=== PATIENT | male | born 1965 | race Caucasian/White ===

== ENCOUNTER 2018-09-10 06:03 | Inpatient (IN) | payer MEDICAID ==
[~2018-09-10] VITALS: Ht 182.9 cm; Wt 98.1 kg
[~2018-09-10 06:03] MED LIST: ASA5EC PO; ATOR20TA65 PO; CLOP75TA33 PO; GLIP10TA10 PO; METFORMIN PO; METO-396 PO
[2018-09-10] MEDS ORDERED: ONDANSETRON HCL 4MG/2ML INJ IV STA (07:23)
[2018-09-10] MEDS ORDERED: MORPHINE SULFATE 4 MG/ML CPJ (NOT FOR IM USE) IV STA (07:23)
[2018-09-10] MEDS ORDERED: ASPIRIN 81MG TABLET PO ONE (07:30)
[2018-09-10 07:36] LABS: INR 0.9; PROTHROMBIN TIME 9.8 sec (9.6-11.0)
[2018-09-10 07:37] LABS: CHLORIDE 105 mEq/L (98-107)
[2018-09-10 07:43] LABS: BASOPHILS % 0.5 % (0.0-2.0); EOSINOPHILS % 3.7 % (0.0-5.0); HEMATOCRIT. 46.9 % (42.0-52.0); HEMOGLOBIN. 16.7 g/dL (14.0-18.0); LYMPHOCYTES % 36.4 % (20.0-50.0); MEAN CORPUSCULAR HEMOGLOBIN 33.4 pg (28.0-32.0); MEAN CORPUSCULAR VOLUME 94.2 fL (80.0-94.0); MEAN PLATELET VOLUME 9.6 fl (7.4-10.4); MONOCYTES % 7.3 % (2.0-8.0); NEUTROPHILS % 52.1 % (40.0-76.0); PLATELET 154 x1000/uL (130-400); RED BLOOD CELL COUNT 4.98 mill/uL (4.7-6.1); RED CELL DISTRIBUTION WIDTH 12.3 % (11.6-14.6)
[2018-09-10 07:45] LABS: CLARITY URINE CLEAR (CLEAR); COLOR URINE YELLOW (YELLOW); KETONES URINE NEGATIVE (NEGATIVE); LEUKOCYTE ESTERASE URINE NEGATIVE (NEGATIVE); NITRITE URINE NEGATIVE (NEGATIVE); OCCULT BLOOD URINE NEGATIVE (NEGATIVE); PH URINE 6.5 (4.5-8.0); PROTEIN URINE NEGATIVE (NEGATIVE); SPECIFIC GRAVITY URINE 1.031 (1.005-1.030)
[2018-09-10] MEDS ORDERED: DEXTROSE 50% WATER 50ML SYRINGE IV PRN (10:45)
[2018-09-10] MEDS ORDERED: ACETAMINOPHEN 325MG TABLET PO PRN (10:45)
[2018-09-10] MEDS ORDERED: ONDANSETRON HCL 4MG/2ML INJ IV PRN (10:45)
[2018-09-10 11:43] VITALS: BP 116/73
[2018-09-10] MEDS: BLOOD SUGAR DIAGNOSTIC STRIP TEST SCH ×3 (11:45→21:31)
[2018-09-10 12:00] VITALS: BP 155/92
[2018-09-10] MEDS ORDERED: REGADENOSON 0.4 MG/5 ML IV ONE (12:30)
[2018-09-10] MEDS: CLOPIDOGREL 75MG TABLET PO SCH (13:30)
[2018-09-10] MEDS: METOPROLOL TARTRATE 25MG TABLET PO SCH ×2 (13:32→21:00)
[2018-09-10] MEDS: ENOXAPARIN 30MG/0.3ML SYR SUBCUT SCH ×2 (13:33→21:32)
[2018-09-10] MEDS: INSULIN LISPRO 100 UNITS/ML SUBCUT SCH ×3 (13:34→21:33)
[2018-09-10] MEDS: NITROGLYCERIN OINT 1GM/INCH UDPKT TD SCH ×2 (14:22→21:57)
[2018-09-10 16:00] VITALS: BP 94/53
[2018-09-10] MEDS: NICOTINE 7MG PATCH TD SCH (17:34)
[2018-09-10 20:00] VITALS: BP 99/56
[2018-09-10] MEDS ORDERED: ATORVASTATIN CALCIUM 20MG TABLET PO SCH (21:00)
[2018-09-10] MEDS ORDERED: ATORVASTATIN CALCIUM 10MG TABLET PO SCH (21:00)
[2018-09-10] MEDS: INSULIN GLARGINE UD 100 UNITS/ML SYR SUBCUT SCH (21:34)
[2018-09-11] VITALS: BP 97/53
[2018-09-11 04:00] VITALS: BP 102/65
[2018-09-11] MEDS: BLOOD SUGAR DIAGNOSTIC STRIP TEST SCH ×2 (06:20→12:24)
[2018-09-11] MEDS: NITROGLYCERIN OINT 1GM/INCH UDPKT TD SCH ×2 (06:20→14:00)
[2018-09-11] MEDS: INSULIN LISPRO 100 UNITS/ML SUBCUT SCH ×2 (06:25→12:48)
[2018-09-11 07:02] LABS: BASOPHILS % 0.5 % (0.0-2.0); EOSINOPHILS % 2.2 % (0.0-5.0); HEMOGLOBIN. 15.1 g/dL (14.0-18.0); LYMPHOCYTES % 28.8 % (20.0-50.0); MEAN CORPUSCULAR HEMOGLOBIN 33.9 pg (28.0-32.0); MEAN CORPUSCULAR VOLUME 94.3 fL (80.0-94.0); MEAN PLATELET VOLUME 9.4 fl (7.4-10.4); MONOCYTES % 6.7 % (2.0-8.0); NEUTROPHILS % 61.8 % (40.0-76.0); PLATELET 133 x1000/uL (130-400); RED BLOOD CELL COUNT 4.46 mill/uL (4.7-6.1); RED CELL DISTRIBUTION WIDTH 12.3 % (11.6-14.6)
[2018-09-11 07:38] LABS: CHLORIDE 107 mEq/L (98-107)
[2018-09-11 08:00] VITALS: BP 139/44
[2018-09-11] MEDS ORDERED: REGADENOSON 0.4 MG/5 ML IV ONE (08:35)
[2018-09-11] MEDS ORDERED: ASPIRIN 81MG TABLET PO SCH (09:00)
[2018-09-11] MEDS: METOPROLOL TARTRATE 25MG TABLET PO SCH (09:51)
[2018-09-11] MEDS: CLOPIDOGREL 75MG TABLET PO SCH (09:52)
[2018-09-11] MEDS: NICOTINE 7MG PATCH TD SCH (09:52)
[2018-09-11] MEDS: INSULIN GLARGINE UD 100 UNITS/ML SYR SUBCUT SCH (09:53)
[2018-09-11] MEDS: ENOXAPARIN 30MG/0.3ML SYR SUBCUT SCH (09:54)
[2018-09-11 12:00] VITALS: BP 108/73
[2018-09-11 12:51] VITALS: BP 108/73
== END 2018-09-11 15:15 | disposition home or self-care (01) | DRG 203 ==
LOC: ER 06:03 → 5WST 09:10 → EDBEDREQ 09:13 → ENRESERV 10:04 → 5WST 11:41
PROVIDERS: ADMIT Internal Medicine; ATTEND Internal Medicine
DX: M94.0 Chondrocostal junction syndrome [Tietze] (principal); I11.9 Hypertensive heart disease without heart failure; E11.9 Type 2 diabetes mellitus without complications; E78.1 Pure hyperglyceridemia; I25.2 Old myocardial infarction; I25.119 Atherosclerotic heart disease of native coronary artery with unspecified angina pectoris; E78.5 Hyperlipidemia, unspecified; F17.210 Nicotine dependence, cigarettes, uncomplicated; I45.10 Unspecified right bundle-branch block; Z79.02 Long term (current) use of antithrombotics/antiplatelets; Z79.82 Long term (current) use of aspirin; Z79.899 Other long term (current) drug therapy; Z82.49 Family history of ischemic heart disease and other diseases of the circulatory system; Z95.5 Presence of coronary angioplasty implant and graft; Z71.6 Tobacco abuse counseling
CPT/HCPCS: 36415; 71045; 78452; 80048; 80061; 82962; 83036; 83880; 84443; 84484; 93005; 93017; 93306; 96374; 96375; 99285; A9500; J1650; J1815; J2270; J2405; J2785

== ENCOUNTER 2020-10-24 00:44 | Inpatient (IN) | payer SELFPAY ==
[~2020-10-24] VITALS: Ht 182.9 cm; Wt 104.9 kg
[2020-10-24] VITALS (8 sets, daily range): BP systolic 129–144; BP diastolic 76–92
[~2020-10-24 00:44] MED LIST changes: -ASA5EC PO; +ASPI-867 PO
[2020-10-24] MEDS ORDERED: ASPIRIN 81MG TABLET PO ONE (01:15)
[2020-10-24] MEDS ORDERED: NITROGLYCERIN 0.4MG TABLET SL SL PRN (01:15)
[2020-10-24 01:35] LABS: BASOPHILS % 0.5 % (0.0-2.0); HEMATOCRIT. 45.5 % (42.0-52.0); HEMOGLOBIN. 16.2 g/dL (14.0-18.0); LYMPHOCYTES % 38.7 % (20.0-50.0); MEAN CORPUSCULAR HEMOGLOBIN 33.9 pg (28.0-32.0); MEAN CORPUSCULAR VOLUME 95.4 fL (80.0-94.0); MEAN PLATELET VOLUME 9.4 fl (7.4-10.4); MONOCYTES % 7.8 % (2.0-8.0); PLATELET 144 x1000/uL (130-400); RED BLOOD CELL COUNT 4.77 mill/uL (4.7-6.1); RED CELL DISTRIBUTION WIDTH 12.2 % (11.6-14.6)
[2020-10-24 01:38] LABS: CHLORIDE 105 mEq/L (98-107)
[2020-10-24] MEDS ORDERED: ENOXAPARIN 100MG/ML SYR SUBCUT NR (02:15)
[2020-10-24 02:38] LABS: PARTIAL THROMBOPLASTIN TIME 27.5 sec (23.4-31.0); PROTHROMBIN TIME 10.3 sec (9.6-11.0)
[2020-10-24] MEDS ORDERED: MORPHINE SULFATE 2 MG/ML CPJ (NOT FOR IM USE) IV PRN (09:00)
[2020-10-24] MEDS ORDERED: MAGNESIUM/ALUMINUM HYDROXIDE/SIMETHICONE 30ML UDC PO PRN (09:00)
[2020-10-24] MEDS ORDERED: ONDANSETRON HCL 4MG/2ML INJ IV PRN (09:00)
[2020-10-24] MEDS ORDERED: IPRATROPIUM/ALBUTEROL 0.5-3(2.5)MG/3ML NEB HHN PRN (09:00)
[2020-10-24] MEDS ORDERED: HYDRALAZINE 20MG/ML VIAL IV PRN (09:00)
[2020-10-24] MEDS ORDERED: DIPHENHYDRAMINE 50MG/ML VIAL IV PRN (09:00)
[2020-10-24] MEDS ORDERED: HYDROCODONE/ACETAMINOPHEN 5/325MG TABLET PO PRN (09:00)
[2020-10-24] MEDS ORDERED: ENOXAPARIN 40MG/0.4ML SYR SUBCUT SCH (09:00)
[2020-10-24] MEDS ORDERED: ACETAMINOPHEN 325MG TABLET PO PRN (09:00)
[2020-10-24] MEDS ORDERED: CLONIDINE 0.1MG TABLET PO PRN (09:00)
[2020-10-24] MEDS ORDERED: LORAZEPAM 2MG/ML CPJ IV PRN (09:00)
[2020-10-24] MEDS ORDERED: DOCUSATE SODIUM 100MG CAPSULE PO PRN (09:00)
[2020-10-24] MEDS ORDERED: GUAIFENESIN 200MG/10ML SUGAR FREE UDC PO PRN (09:00)
[2020-10-24] MEDS ORDERED: ENOXAPARIN 100MG/ML SYR SUBCUT SCH (14:00)
[2020-10-24] MEDS: ASPIRIN 81MG TABLET PO SCH (14:22)
[2020-10-24] MEDS: AMLODIPINE 2.5MG TABLET PO SCH (14:22)
[2020-10-24] MEDS: SODIUM CHLORIDE 0.9% INJ 3ML FLUSH IVF SCH ×2 (14:22→21:10)
[2020-10-24 16:00] LABS: CREATINE KINASE MB FRACTION 19.6 ng/mL (0.5-3.6)
[2020-10-24] MEDS: ENOXAPARIN 100MG/ML SYR SUBCUT SCH (18:40)
[2020-10-24] MEDS ORDERED: ENOXAPARIN 30MG/0.3ML SYR SUBCUT SCH (21:00)
[2020-10-24] MEDS ORDERED: METOPROLOL TARTRATE 25MG TABLET PO SCH (21:00)
[2020-10-24] MEDS: NITROGLYCERIN OINT 1GM/INCH UDPKT TD SCH (21:10)
[2020-10-25] VITALS (11 sets, daily range): BP systolic 106–149; BP diastolic 67–86
[2020-10-25 00:19] LABS: CREATINE KINASE MB FRACTION 9.4 ng/mL (0.5-3.6)
[2020-10-25] MEDS: NITROGLYCERIN OINT 1GM/INCH UDPKT TD SCH ×3 (06:20→21:25)
[2020-10-25] MEDS: ENOXAPARIN 100MG/ML SYR SUBCUT SCH ×2 (06:21→17:41)
[2020-10-25] MEDS: SODIUM CHLORIDE 0.9% INJ 3ML FLUSH IVF SCH ×3 (06:21→21:17)
[2020-10-25 06:31] LABS: BASOPHILS % 0.7 % (0.0-2.0); EOSINOPHILS % 2.4 % (0.0-5.0); HEMATOCRIT. 44.4 % (42.0-52.0); HEMOGLOBIN. 15.7 g/dL (14.0-18.0); LYMPHOCYTES % 34.6 % (20.0-50.0); MEAN CORPUSCULAR HEMOGLOBIN 33.7 pg (28.0-32.0); MEAN CORPUSCULAR VOLUME 95.3 fL (80.0-94.0); MEAN PLATELET VOLUME 9.7 fl (7.4-10.4); MONOCYTES % 8.2 % (2.0-8.0); NEUTROPHILS % 54.1 % (40.0-76.0); PLATELET 143 x1000/uL (130-400); RED BLOOD CELL COUNT 4.66 mill/uL (4.7-6.1); RED CELL DISTRIBUTION WIDTH 12.2 % (11.6-14.6)
[2020-10-25 06:44] LABS: CHLORIDE 106 mEq/L (98-107)
[2020-10-25] MEDS: ASPIRIN 81MG TABLET PO SCH (10:11)
[2020-10-25] MEDS: AMLODIPINE 2.5MG TABLET PO SCH (10:12)
[2020-10-25] MEDS ORDERED: DEXTROSE 50% WATER 50ML SYRINGE IV PRN (12:00)
[2020-10-25] MEDS: INSULIN LISPRO 100 UNITS/ML SUBCUT SCH ×3 (12:20→21:27)
[2020-10-25] MEDS: BLOOD SUGAR DIAGNOSTIC STRIP TEST SCH ×2 (17:30→21:21)
[2020-10-25 20:49] LABS: CLARITY URINE CLEAR (CLEAR); COLOR URINE YELLOW (YELLOW); KETONES URINE NEGATIVE (NEGATIVE); LEUKOCYTE ESTERASE URINE NEGATIVE (NEGATIVE); NITRITE URINE NEGATIVE (NEGATIVE); OCCULT BLOOD URINE NEGATIVE (NEGATIVE); PH URINE 6.5 (4.5-8.0); PROTEIN URINE TRACE (NEGATIVE); SPECIFIC GRAVITY URINE 1.036 (1.005-1.030)
[2020-10-25 21:11] LABS: *AMPHETAMINES SCREEN URINE NEGATIVE (NEGATIVE); *BARBITURATES SCREEN URINE NEGATIVE (NEGATIVE); *BENZODIAZEPINES SCREEN URINE NEGATIVE (NEGATIVE)
[2020-10-25 21:12] LABS: *COCAINE SCREEN URINE NEGATIVE (NEGATIVE); CANNABINOID URINE SCREEN NEGATIVE (NEGATIVE); METHADONE URINE SCREEN NEGATIVE (NEGATIVE); OPIATES URINE SCREEN NEGATIVE (NEGATIVE); PHENCYCLIDINE URINE SCREEN NEGATIVE (NEGATIVE)
[2020-10-25] MEDS: METOPROLOL TARTRATE 50MG TABLET PO SCH (21:26)
[2020-10-26] VITALS (17 sets, daily range): BP systolic 89–133; BP diastolic 49–91
[2020-10-26] MEDS: SODIUM CHLORIDE 0.9% INJ 3ML FLUSH IVF SCH ×3 (05:19→21:12)
[2020-10-26] MEDS: BLOOD SUGAR DIAGNOSTIC STRIP TEST SCH ×4 (06:21→21:06)
[2020-10-26] MEDS: NITROGLYCERIN OINT 1GM/INCH UDPKT TD SCH ×3 (06:21→23:08)
[2020-10-26] MEDS ORDERED: SODIUM CHLORIDE 0.9% 500 ML IV ONE (07:00)
[2020-10-26 07:05] LABS: CHLORIDE 107 mEq/L (98-107)
[2020-10-26] MEDS: INSULIN LISPRO 100 UNITS/ML SUBCUT SCH ×4 (07:20→21:17)
[2020-10-26 07:43] LABS: BASOPHILS % 0.5 % (0.0-2.0); EOSINOPHILS % 2.4 % (0.0-5.0); HEMATOCRIT. 43.2 % (42.0-52.0); HEMOGLOBIN. 15.5 g/dL (14.0-18.0); LYMPHOCYTES % 33.7 % (20.0-50.0); MEAN CORPUSCULAR HEMOGLOBIN 34.3 pg (28.0-32.0); MEAN CORPUSCULAR VOLUME 95.8 fL (80.0-94.0); MONOCYTES % 8.8 % (2.0-8.0); NEUTROPHILS % 54.6 % (40.0-76.0); PLATELET 137 x1000/uL (130-400); RED BLOOD CELL COUNT 4.51 mill/uL (4.7-6.1); RED CELL DISTRIBUTION WIDTH 12.3 % (11.6-14.6)
[2020-10-26] MEDS ORDERED: NITROGLYCERIN 50MCG/ML 10ML VIAL (CATH LAB) IV ONE (07:49)
[2020-10-26] MEDS ORDERED: NICARDIPINE 100MCG/ML 10ML VIAL (CATH LAB) IV ONE (07:49)
[2020-10-26] MEDS ORDERED: HEPARIN SODIUM 1,000 UNIT/1ML VIAL IV ONE (07:49)
[2020-10-26] MEDS: ASPIRIN 81MG TABLET PO SCH (08:53)
[2020-10-26] MEDS: AMLODIPINE 2.5MG TABLET PO SCH (09:00)
[2020-10-26] MEDS: METOPROLOL TARTRATE 50MG TABLET PO SCH ×2 (09:00→21:13)
[2020-10-26] MEDS ORDERED: SODIUM CHLORIDE 0.45% 500 ML IV ONE (09:45)
[2020-10-26] MEDS ORDERED: FENTANYL CITRATE/PF 50MCG/ML 2ML VIAL ONE (10:10)
[2020-10-26] MEDS ORDERED: ASPIRIN/SOD BICARB/CITRIC ACID 324MG TAB EFF ONE (10:10)
[2020-10-26] MEDS ORDERED: MIDAZOLAM HCL 2 MG/2 ML VIAL ONE (10:10)
[2020-10-26] MEDS ORDERED: LIDOCAINE HCL 1% 20ML VIAL (Pyxis) INJ ONE (10:11)
[2020-10-26] MEDS ORDERED: IODIXANOL 320MG/ML 100 ML BOTTLE IV ONE (10:11)
[2020-10-26] MEDS ORDERED: IODIXANOL 320MG/ML 200ML BOTTLE ONE (10:17)
[2020-10-26] MEDS ORDERED: ALLOPURINOL 300 MG TABLET PO NR (13:15)
[2020-10-26] MEDS ORDERED: ASCORBIC ACID 500 MG TABLET PO NR (13:16)
[2020-10-26 17:06] LABS: PARTIAL THROMBOPLASTIN TIME 29.1 sec (23.4-31.0); PROTHROMBIN TIME 10.3 sec (9.6-11.0)
[2020-10-26] MEDS ORDERED: CHLORHEXIDINE GLUCONATE 4% EXTERNAL USE TOP SCH ×2 (21:00)
[2020-10-27] VITALS (77 sets, daily range): BP systolic 93–161; BP diastolic 46–87
[2020-10-27] MEDS ORDERED: BLOOD SUGAR DIAGNOSTIC STRIP TEST NR (04:00)
[2020-10-27] MEDS ORDERED: CEFAZOLIN 1000MG PREMIX 50 ML IV SCH (05:00)
[2020-10-27 05:31] LABS: BASOPHILS % 0.4 % (0.0-2.0); HEMATOCRIT. 47.4 % (42.0-52.0); HEMOGLOBIN. 16.1 g/dL (14.0-18.0); LYMPHOCYTES % 39.8 % (20.0-50.0); MEAN CORPUSCULAR HEMOGLOBIN 33.2 pg (28.0-32.0); MEAN CORPUSCULAR VOLUME 97.8 fL (80.0-94.0); MEAN PLATELET VOLUME 9.1 fl (7.4-10.4); MONOCYTES % 8.4 % (2.0-8.0); NEUTROPHILS % 48.4 % (40.0-76.0); PLATELET 148 x1000/uL (130-400); RED BLOOD CELL COUNT 4.85 mill/uL (4.7-6.1); RED CELL DISTRIBUTION WIDTH 12.4 % (11.6-14.6)
[2020-10-27] MEDS ORDERED: ACETAMINOPHEN 500MG TABLET ONE (05:33)
[2020-10-27] MEDS ORDERED: THROMBIN (BOVINE) 5000 UNITS/VIAL TOP ONE (05:34)
[2020-10-27] MEDS ORDERED: SKIN ADHESIVE 0.7 GM EA TOP ONE (05:34)
[2020-10-27] MEDS ORDERED: POLYMYXIN B SULFATE 500000 UNITS/VIAL ONE (05:35)
[2020-10-27 05:38] LABS: CHLORIDE 107 mEq/L (98-107)
[2020-10-27] MEDS ORDERED: HEPARIN 1000 UNITS/ML 10ML ONE ×3 (05:39→08:33)
[2020-10-27] MEDS ORDERED: PAPAVERINE HCL 180MG in SODIUM CHLORIDE 0.9% 24ML IV PRN (06:00)
[2020-10-27] MEDS ORDERED: INSULIN REGULAR (DRIP) 100 UNITS in SODIUM CHLORIDE 0.9% 99 ML IV PRN (06:00)
[2020-10-27] MEDS ORDERED: NICARDIPINE 40 MG/200 ML PREMIX 200 ML IV PRN (06:00)
[2020-10-27] MEDS ORDERED: DEL NIDO ELECTROLYTE-S(PH 7.4) 1,000 ML IV PRN ×2 (06:00)
[2020-10-27] MEDS: NITROGLYCERIN OINT 1GM/INCH UDPKT TD SCH (06:00)
[2020-10-27] MEDS ORDERED: CEFAZOLIN 2,000 MG in DEXT 5% WATER 100 ML IV PRN (06:00)
[2020-10-27] MEDS ORDERED: EPINEPHRINE 5 MG in DEXT 5% WATER 245 ML IV PRN (06:00)
[2020-10-27] MEDS ORDERED: DOPAMINE 400 MG PREMIX 250 ML IV PRN (06:00)
[2020-10-27] MEDS ORDERED: DOBUTAMINE 250 MG PREMIX 250 ML IV PRN (06:00)
[2020-10-27] MEDS ORDERED: NOREPINEPHRINE 8 MG in DEXT 5% WATER 242 ML IV PRN (06:00)
[2020-10-27] MEDS: BLOOD SUGAR DIAGNOSTIC STRIP TEST SCH ×16 (06:07→23:00)
[2020-10-27] MEDS: SODIUM CHLORIDE 0.9% INJ 3ML FLUSH IVF SCH (06:23)
[2020-10-27] MEDS: INSULIN LISPRO 100 UNITS/ML SUBCUT SCH (06:38)
[2020-10-27] MEDS ORDERED: HYDROMORPHONE HCL/PF 2MG/ML (OR) ONE (06:46)
[2020-10-27] MEDS ORDERED: ROCURONIUM BROMIDE 10MG/ML VIAL 5ML IV ONE (06:57)
[2020-10-27] MEDS ORDERED: DEXAMETHASONE 4MG/ML 1ML VIAL ONE (06:57)
[2020-10-27] MEDS ORDERED: POTASSIUM CHLORIDE 40MEQ/20ML INJ IV ONE (07:35)
[2020-10-27] MEDS ORDERED: MAGNESIUM SULFATE 5GM/10ML VIAL IV ONE (07:35)
[2020-10-27] MEDS ORDERED: HEPARIN 10,000 UNITS/ML VIAL ONE (07:35)
[2020-10-27] MEDS ORDERED: ALBUMIN HUMAN 25GM/100ML (25%) IV ONE (07:35)
[2020-10-27] MEDS ORDERED: FUROSEMIDE 100MG/10ML VIAL ONE (07:40)
[2020-10-27] MEDS ORDERED: CALCIUM CHLORIDE 1GM/10ML SYR IV ONE ×2 (07:48→09:14)
[2020-10-27] MEDS ORDERED: SODIUM BICARBONATE 8.4% 1 MEQ/ML 50ML SYR IV ONE (08:55)
[2020-10-27] MEDS ORDERED: CHLORHEXIDINE GLUCONATE 4% EXTERNAL USE TOP SCH ×2 (09:00)
[2020-10-27] MEDS ORDERED: KCL 10MEQ/50ML PREMIX 200 ML IV PRN (09:00)
[2020-10-27] MEDS ORDERED: DEXTROSE 50% WATER 50ML SYRINGE IV PRN ×2 (09:00)
[2020-10-27] MEDS ORDERED: PROTAMINE SULFATE 10MG/ML VIAL 25ML IV ONE (09:40)
[2020-10-27] MEDS ORDERED: NEOSTIGMINE METHYLSULFATE 1MG/ML 10 ML VIAL ONE (10:21)
[2020-10-27 11:00] LABS: BG BASE EXCESS 0.2 mmol/L (-2.0-2.0); BG CARBOXYHEMOGLOBIN 1.1 % (0.5-1.5); BG FRACTION INSPIRED OXYGEN 50; BG HCO3 ACT 27.2 mmol/L (22.0-26.0); BG METHEMOGLOBIN 0.1 % (0.0-1.5); BG OXYGEN SATURATION 91.9 % (92.0-98.5); BG OXYHEMOGLOBIN 90.8 % (94.0-97.0); BG PCO2 53.4 mmHg (35.0-45.0); BG PH 7.325 (7.350-7.450); BG PO2 63.5 mmHg (75.0-100.0); BG SAMPLE SITE ALINE; BG TOTAL HEMOGLOBIN 14.5 g/dL (12.0-18.0); BG VENT MODE MASK - SIMPLE
[2020-10-27] MEDS ORDERED: MAGNESIUM 2 G PREMIX 50 ML IV PRN (11:00)
[2020-10-27] MEDS ORDERED: ALBUMIN HUMAN 12.5G/250ML (5%) IV PRN (11:00)
[2020-10-27] MEDS ORDERED: DOPAMINE 400MG/250ML PREMIX 250 ML IV SCH (11:00)
[2020-10-27] MEDS ORDERED: MORPHINE SULFATE 2 MG/ML CPJ (NOT FOR IM USE) IV PRN ×2 (11:00→11:15)
[2020-10-27] MEDS ORDERED: CALCIUM CHLORIDE 3,000 MG in DEXT 5% WATER 250 ML IV PRN (11:00)
[2020-10-27] MEDS ORDERED: MAGNESIUM SULFATE 3 GM in DEXT 5% WATER 100 ML IV PRN (11:00)
[2020-10-27] MEDS ORDERED: ONDANSETRON HCL 4MG/2ML INJ IV PRN (11:00)
[2020-10-27] MEDS ORDERED: SODIUM CHLORIDE 0.9% 500 ML IV PRN (11:00)
[2020-10-27] MEDS ORDERED: FAMOTIDINE 20MG/2ML VIAL IV SCH (11:00)
[2020-10-27] MEDS ORDERED: ALBUMIN HUMAN 25GM/100ML (25%) IV PRN (11:00)
[2020-10-27] MEDS: KETOROLAC 30MG/ML VIAL IV PRN (11:23)
[2020-10-27 11:25] LABS: CHLORIDE 111 mEq/L (98-107)
[2020-10-27] MEDS: MAGNESIUM HYDROXIDE 400MG/5ML 30ML UDC PO SCH ×4 (11:30→23:02)
[2020-10-27] MEDS: MAGNESIUM 1 G PREMIX 100 ML IV PRN ×2 (11:56→20:23)
[2020-10-27] MEDS: INSULIN REGULAR (DRIP) 100 UNITS in SODIUM CHLORIDE 0.9% 99 ML IV SCH (11:56)
[2020-10-27 12:00] LABS: BASOPHILS % 0.2 % (0.0-2.0); EOSINOPHILS % 0.4 % (0.0-5.0); HEMOGLOBIN. 14.2 g/dL (14.0-18.0); LYMPHOCYTES % 11.8 % (20.0-50.0); MEAN CORPUSCULAR HEMOGLOBIN 34.5 pg (28.0-32.0); MEAN PLATELET VOLUME 9.6 fl (7.4-10.4); MONOCYTES % 3.3 % (2.0-8.0); NEUTROPHILS % 84.3 % (40.0-76.0); PLATELET 117 x1000/uL (130-400); RED CELL DISTRIBUTION WIDTH 12.4 % (11.6-14.6)
[2020-10-27] MEDS ORDERED: DEXT 5%/0.45% NACL 1000ML 1,000 ML IV SCH (12:00)
[2020-10-27] MEDS: IPRATROPIUM/ALBUTEROL 0.5-3(2.5)MG/3ML NEB HHN SCH ×2 (13:00→16:37)
[2020-10-27] MEDS: CEFAZOLIN 1000MG PREMIX 50 ML IV SCH ×2 (13:20→22:12)
[2020-10-27] MEDS ORDERED: ALBUMIN HUMAN 12.5G/250ML (5%) IV NR (13:30)
[2020-10-27] MEDS: KCL 10MEQ/50ML PREMIX 150 ML IV PRN ×3 (14:25→14:27)
[2020-10-27] MEDS: OXYCODONE HCL/ACETAMINOPHEN 5/325MG TABLET PO PRN ×2 (14:40→20:24)
[2020-10-27] MEDS ORDERED: NITROGLYCERIN 50MG PREMIX 250 ML IV PRN (16:30)
[2020-10-27] MEDS: DOCUSATE SODIUM 100MG CAPSULE PO SCH (16:35)
[2020-10-27] MEDS: BACITRACIN 15GM TUBE TOP SCH (17:00)
[2020-10-27] MEDS ORDERED: METOPROLOL TARTRATE 25MG TABLET PO SCH (17:00)
[2020-10-27 19:02] LABS: HEMATOCRIT. 37.7 % (42.0-52.0); HEMOGLOBIN. 13.6 g/dL (14.0-18.0); MEAN CORPUSCULAR HEMOGLOBIN 34.1 pg (28.0-32.0); MEAN CORPUSCULAR VOLUME 94.5 fL (80.0-94.0); PLATELET 139 x1000/uL (130-400); RED BLOOD CELL COUNT 3.99 mill/uL (4.7-6.1); RED CELL DISTRIBUTION WIDTH 12.1 % (11.6-14.6)
[2020-10-27 19:09] LABS: CHLORIDE 109 mEq/L (98-107)
[2020-10-27 19:15] LABS: PHOSPHORUS 2.4 mg/dL (2.5-4.9)
[2020-10-27 19:29] LABS: PLATELET ESTIMATE NORMAL
[2020-10-27] MEDS ORDERED: ASPIRIN 81MG TABLET PO SCH (19:30)
[2020-10-27] MEDS ORDERED: FUROSEMIDE 40MG/4ML VIAL IVP SCH (19:30)
[2020-10-27] MEDS: CLOPIDOGREL 75MG TABLET PO SCH (20:24)
[2020-10-27] MEDS: ATORVASTATIN CALCIUM 40MG TABLET PO SCH (20:24)
[2020-10-28] VITALS (88 sets, daily range): BP systolic 83–281; BP diastolic 42–122
[2020-10-28] MEDS: BLOOD SUGAR DIAGNOSTIC STRIP TEST SCH ×15 (01:00→21:00)
[2020-10-28 01:11] LABS: BASOPHILS % 0.6 % (0.0-2.0); EOSINOPHILS % 0.1 % (0.0-5.0); HEMATOCRIT. 38.7 % (42.0-52.0); HEMOGLOBIN. 13.8 g/dL (14.0-18.0); LYMPHOCYTES % 8.8 % (20.0-50.0); MEAN CORPUSCULAR HEMOGLOBIN 33.5 pg (28.0-32.0); MEAN CORPUSCULAR VOLUME 94.2 fL (80.0-94.0); MEAN PLATELET VOLUME 9.1 fl (7.4-10.4); NEUTROPHILS % 80.5 % (40.0-76.0); PLATELET 145 x1000/uL (130-400); RED BLOOD CELL COUNT 4.11 mill/uL (4.7-6.1); RED CELL DISTRIBUTION WIDTH 12.3 % (11.6-14.6)
[2020-10-28 01:17] LABS: CHLORIDE 107 mEq/L (98-107)
[2020-10-28 01:22] LABS: PHOSPHORUS 2.9 mg/dL (2.5-4.9)
[2020-10-28] MEDS: KCL 10MEQ/50ML PREMIX 100 ML IV PRN ×3 (01:45→12:35)
[2020-10-28] MEDS: OXYCODONE HCL/ACETAMINOPHEN 5/325MG TABLET PO PRN ×4 (03:00→19:49)
[2020-10-28] MEDS: MAGNESIUM HYDROXIDE 400MG/5ML 30ML UDC PO SCH ×6 (03:17→21:27)
[2020-10-28 05:01] LABS: BASOPHILS % 0.4 % (0.0-2.0); EOSINOPHILS % 0.2 % (0.0-5.0); HEMATOCRIT. 40.6 % (42.0-52.0); HEMOGLOBIN. 14.4 g/dL (14.0-18.0); LYMPHOCYTES % 10.5 % (20.0-50.0); MEAN CORPUSCULAR HEMOGLOBIN 33.6 pg (28.0-32.0); MEAN CORPUSCULAR VOLUME 94.5 fL (80.0-94.0); MEAN PLATELET VOLUME 9.1 fl (7.4-10.4); MONOCYTES % 9.1 % (2.0-8.0); NEUTROPHILS % 79.8 % (40.0-76.0); PLATELET 151 x1000/uL (130-400); RED CELL DISTRIBUTION WIDTH 12.2 % (11.6-14.6)
[2020-10-28 05:08] LABS: CHLORIDE 106 mEq/L (98-107)
[2020-10-28] MEDS: CEFAZOLIN 1000MG PREMIX 50 ML IV SCH ×2 (05:18→13:41)
[2020-10-28] MEDS: INSULIN REGULAR (DRIP) 100 UNITS in SODIUM CHLORIDE 0.9% 99 ML IV SCH (05:19)
[2020-10-28] MEDS: MAGNESIUM 1 G PREMIX 100 ML IV PRN ×2 (06:23→08:46)
[2020-10-28] MEDS ORDERED: FUROSEMIDE 40MG/4ML VIAL IVP SCH (07:15)
[2020-10-28] MEDS: ASPIRIN 81MG TABLET PO SCH (08:19)
[2020-10-28] MEDS: TRAMADOL HCL/ACETAMINOPHEN 37.5/325MG TABLET PO PRN ×3 (08:20→23:10)
[2020-10-28] MEDS: DOCUSATE SODIUM 100MG CAPSULE PO SCH ×2 (08:20→16:31)
[2020-10-28] MEDS: FUROSEMIDE 20MG TABLET PO SCH (08:21)
[2020-10-28] MEDS: CLOPIDOGREL 75MG TABLET PO SCH ×2 (08:21→16:32)
[2020-10-28] MEDS: FAMOTIDINE 20MG TABLET PO SCH ×2 (08:21→21:26)
[2020-10-28] MEDS ORDERED: METOPROLOL TARTRATE 25MG TABLET PO SCH (09:00)
[2020-10-28] MEDS ORDERED: ALBUMIN HUMAN 25GM/100ML (25%) IV SCH (09:00)
[2020-10-28] MEDS: BACITRACIN 15GM TUBE TOP SCH ×2 (09:12→16:33)
[2020-10-28] MEDS ORDERED: DEXTROSE 50% WATER 50ML SYRINGE IV PRN (11:30)
[2020-10-28 11:46] LABS: CHLORIDE 105 mEq/L (98-107)
[2020-10-28] MEDS ORDERED: BUMETANIDE 2.5MG/10ML VIAL IV NR (12:00)
[2020-10-28] MEDS: INSULIN LISPRO 100 UNITS/ML SUBCUT SCH ×3 (12:55→21:27)
[2020-10-28] MEDS: ATORVASTATIN CALCIUM 40MG TABLET PO SCH (21:26)
[2020-10-28] MEDS: METOPROLOL TARTRATE 25MG TABLET PO SCH (21:27)
[2020-10-29] VITALS (33 sets, daily range): BP systolic 101–158; BP diastolic 23–99
[2020-10-29] MEDS: MAGNESIUM HYDROXIDE 400MG/5ML 30ML UDC PO SCH ×2 (00:12→05:24)
[2020-10-29] MEDS: OXYCODONE HCL/ACETAMINOPHEN 5/325MG TABLET PO PRN ×3 (02:11→22:12)
[2020-10-29] MEDS: TRAMADOL HCL/ACETAMINOPHEN 37.5/325MG TABLET PO PRN (05:24)
[2020-10-29 05:33] LABS: BASOPHILS % 0.1 % (0.0-2.0); EOSINOPHILS % 1.3 % (0.0-5.0); HEMATOCRIT. 37.6 % (42.0-52.0); HEMOGLOBIN. 13.3 g/dL (14.0-18.0); LYMPHOCYTES % 14.5 % (20.0-50.0); MEAN CORPUSCULAR HEMOGLOBIN 34.2 pg (28.0-32.0); MEAN CORPUSCULAR VOLUME 96.4 fL (80.0-94.0); MEAN PLATELET VOLUME 9.6 fl (7.4-10.4); MONOCYTES % 10.7 % (2.0-8.0); NEUTROPHILS % 73.4 % (40.0-76.0); PLATELET 137 x1000/uL (130-400); RED CELL DISTRIBUTION WIDTH 12.3 % (11.6-14.6)
[2020-10-29 05:35] LABS: CHLORIDE 101 mEq/L (98-107)
[2020-10-29] MEDS: KCL 10MEQ/50ML PREMIX 100 ML IV PRN (05:51)
[2020-10-29] MEDS ORDERED: FUROSEMIDE 100MG/10ML VIAL IVP NR (07:30)
[2020-10-29] MEDS: BLOOD SUGAR DIAGNOSTIC STRIP TEST SCH ×3 (08:08→21:57)
[2020-10-29] MEDS: FUROSEMIDE 20MG TABLET PO SCH (08:08)
[2020-10-29] MEDS: INSULIN LISPRO 100 UNITS/ML SUBCUT SCH ×3 (08:09→22:15)
[2020-10-29] MEDS: ASPIRIN 81MG TABLET PO SCH (08:23)
[2020-10-29] MEDS: MAGNESIUM 1 G PREMIX 100 ML IV PRN (08:23)
[2020-10-29] MEDS: FAMOTIDINE 20MG TABLET PO SCH ×2 (08:23→22:11)
[2020-10-29] MEDS: CLOPIDOGREL 75MG TABLET PO SCH ×2 (08:24→16:14)
[2020-10-29] MEDS: METOPROLOL TARTRATE 25MG TABLET PO SCH ×2 (08:25→22:11)
[2020-10-29] MEDS: DOCUSATE SODIUM 100MG CAPSULE PO SCH ×2 (08:26→16:14)
[2020-10-29] MEDS: BACITRACIN 15GM TUBE TOP SCH ×2 (08:26→16:14)
[2020-10-29] MEDS: KETOROLAC 30MG/ML VIAL IV PRN ×2 (09:42→14:55)
[2020-10-29] MEDS: ATORVASTATIN CALCIUM 40MG TABLET PO SCH (22:11)
[2020-10-30] VITALS (12 sets, daily range): BP systolic 96–145; BP diastolic 59–87
[2020-10-30] MEDS: OXYCODONE HCL/ACETAMINOPHEN 5/325MG TABLET PO PRN ×3 (05:50→23:15)
[2020-10-30] MEDS: BLOOD SUGAR DIAGNOSTIC STRIP TEST SCH ×4 (05:58→20:50)
[2020-10-30] MEDS: ASPIRIN 81MG TABLET PO SCH (08:19)
[2020-10-30] MEDS: CLOPIDOGREL 75MG TABLET PO SCH ×2 (08:19→17:18)
[2020-10-30] MEDS: INSULIN LISPRO 100 UNITS/ML SUBCUT SCH ×4 (08:20→21:18)
[2020-10-30] MEDS: FAMOTIDINE 20MG TABLET PO SCH ×2 (08:20→20:48)
[2020-10-30] MEDS: TRAMADOL HCL/ACETAMINOPHEN 37.5/325MG TABLET PO PRN (08:51)
[2020-10-30] MEDS: FUROSEMIDE 20MG TABLET PO SCH (08:55)
[2020-10-30] MEDS: METOPROLOL TARTRATE 25MG TABLET PO SCH ×2 (09:01→20:49)
[2020-10-30] MEDS: BACITRACIN 15GM TUBE TOP SCH ×2 (10:08→17:21)
[2020-10-30] MEDS ORDERED: FUROSEMIDE 100MG/10ML VIAL IVP NR (10:30)
[2020-10-30 10:55] LABS: CHLORIDE 99 mEq/L (98-107)
[2020-10-30 12:46] LABS: BASOPHILS % 1.4 % (0.0-2.0); EOSINOPHILS % 1.7 % (0.0-5.0); HEMATOCRIT. 35.2 % (42.0-52.0); HEMOGLOBIN. 12.6 g/dL (14.0-18.0); LYMPHOCYTES % 20.6 % (20.0-50.0); MEAN CORPUSCULAR HEMOGLOBIN 34.6 pg (28.0-32.0); MEAN CORPUSCULAR VOLUME 96.9 fL (80.0-94.0); MEAN PLATELET VOLUME 9.9 fl (7.4-10.4); MONOCYTES % 8.6 % (2.0-8.0); NEUTROPHILS % 67.7 % (40.0-76.0); PLATELET 138 x1000/uL (130-400); RED BLOOD CELL COUNT 3.63 mill/uL (4.7-6.1); RED CELL DISTRIBUTION WIDTH 12.5 % (11.6-14.6)
[2020-10-30] MEDS: FUROSEMIDE 40MG TABLET PO SCH (20:48)
[2020-10-30] MEDS: ATORVASTATIN CALCIUM 40MG TABLET PO SCH (20:48)
[2020-10-31] VITALS (9 sets, daily range): BP systolic 107–145; BP diastolic 61–76
[2020-10-31] MEDS: OXYCODONE HCL/ACETAMINOPHEN 5/325MG TABLET PO PRN (05:33)
[2020-10-31] MEDS: BLOOD SUGAR DIAGNOSTIC STRIP TEST SCH ×2 (06:46→12:17)
[2020-10-31] MEDS: INSULIN LISPRO 100 UNITS/ML SUBCUT SCH ×2 (07:54→13:12)
[2020-10-31] MEDS: FUROSEMIDE 40MG TABLET PO SCH (08:14)
[2020-10-31] MEDS: ASPIRIN 81MG TABLET PO SCH (08:14)
[2020-10-31] MEDS: CLOPIDOGREL 75MG TABLET PO SCH (08:14)
[2020-10-31] MEDS: FAMOTIDINE 20MG TABLET PO SCH (08:14)
[2020-10-31] MEDS: BACITRACIN 15GM TUBE TOP SCH (08:15)
[2020-10-31] MEDS: METOPROLOL TARTRATE 25MG TABLET PO SCH (08:15)
[2020-10-31] MEDS: IPRATROPIUM/ALBUTEROL 0.5-3(2.5)MG/3ML NEB HHN SCH ×3 (08:25→16:00)
[2020-10-31] MEDS: TRAMADOL HCL/ACETAMINOPHEN 37.5/325MG TABLET PO PRN (09:18)
[2020-10-31] MEDS ORDERED: FUROSEMIDE 40MG/4ML VIAL IVP NR (10:45)
[2020-10-31] MEDS ORDERED: MAGNESIUM 4 G PREMIX 100 ML IV NR (12:30)
== END 2020-10-31 17:05 | disposition home or self-care (01) | DRG 166 ==
LOC: ER 00:44 → 8WST 03:32 → ENRESERV 09:07 → 3WST 10-25 09:31 → CVICU 10-27 08:44 → 3WST 10-29 16:38
PROVIDERS: ADMIT Internal Medicine; ATTEND Internal Medicine
PROC: 4A023N7 Measurement of Cardiac Sampling and Pressure, Left Heart, Percutaneous Approach (ICD-10-PCS; 2020-10-26)
PROC: B2111ZZ Fluoroscopy of Multiple Coronary Arteries using Low Osmolar Contrast (ICD-10-PCS; 2020-10-26)
PROC: 02100Z8 Bypass Coronary Artery, One Artery from Right Internal Mammary, Open Approach (ICD-10-PCS; principal; 2020-10-27)
PROC: 02100Z9 Bypass Coronary Artery, One Artery from Left Internal Mammary, Open Approach (ICD-10-PCS; 2020-10-27)
PROC: 021209W Bypass Coronary Artery, Three Arteries from Aorta with Autologous Venous Tissue, Open Approach (ICD-10-PCS; 2020-10-27)
PROC: 06BQ4ZZ Excision of Left Saphenous Vein, Percutaneous Endoscopic Approach (ICD-10-PCS; 2020-10-27)
DX: I25.10 Atherosclerotic heart disease of native coronary artery without angina pectoris (principal); I21.4 Non-ST elevation (NSTEMI) myocardial infarction; T82.855A Stenosis of coronary artery stent, initial encounter; E78.5 Hyperlipidemia, unspecified; F17.210 Nicotine dependence, cigarettes, uncomplicated; I10 Essential (primary) hypertension; Z20.822 Contact with and (suspected) exposure to COVID-19; Y84.0 Cardiac catheterization as the cause of abnormal reaction of the patient, or of later complication, without mention of misadventure at the time of the procedure; Z91.14 Patient's other noncompliance with medication regimen; Z95.5 Presence of coronary angioplasty implant and graft; I25.2 Old myocardial infarction; Z79.899 Other long term (current) drug therapy; Y92.89 Other specified places as the place of occurrence of the external cause
CPT/HCPCS: 36415; 36600; 71045; 80048; 80053; 80061; 80305; 81003; 82375; 82550; 82553; 82805; 82962; 83036; 83735; 83880; 84100; 84132; 84443; 84484; 85025; 86850; 86900; 86920; 87426; 93005; 93306; 93458; 93880; 93970; 94640; 97116; 97162; 97166; 97530; 99285; C1769; C1887; C1893; J0690; J1100; J1170; J1644; J1650; J1815; J1885; J1940; J2250; J2270; J2440; J2710; J2720; J3010; J3475; J3480; J3490; J7040; J7050; J7060; P9041; P9047; Q9967